=== PATIENT | female | born 1950 | race Hispanic/Latino ===

== ENCOUNTER 2017-07-03 02:18 | Emergency (ER) | payer OTHER, MEDICARE ==
[2017-07-03] MEDS ORDERED: DEXAMETHASONE SOD PHOSPHATE 10MG/ML 1ML VIAL ONE (03:08)
[2017-07-03] MEDS ORDERED: WATER FOR INJECTION,STERILE 20 ML VIAL ONE (03:08)
[2017-07-03] MEDS ORDERED: CEFTRIAXONE SODIUM 1 GM ONE (03:09)
[2017-07-03] MEDS ORDERED: ACETAMINOPHEN EXTRA STRENGTH 500 MG TABLET ONE (03:09)
[2017-07-03] MEDS ORDERED: SODIUM CHLORIDE 0.9% 1000ML 1,000 ML IV ONE (03:09)
[2017-07-03 03:13] LABS: BASOPHILS % (AUTO) 0.5 % (0.0-5.0); EOSINOPHILS % (AUTO) 1.4 % (0.0-8.0); HEMATOCRIT 40.2 % (36-48); LYMPHOCYTES % (AUTO) 33.9 % (21.0-51.0); MEAN CORPUSCULAR HEMOGLOBIN 29.5 pg (27.0-33.0); MEAN CORPUSCULAR HGB CONC 33.5 g/dL (32.0-36.0); MEAN CORPUSCULAR VOLUME 88.2 fL (79-99); MONOCYTES % (AUTO) 12.6 % (3.0-13.0); NEUTROPHILS % (AUTO) 51.6 % (40.0-77.0); PLATELET COUNT (AUTO) 194 K/uL (130-400); RED BLOOD CELL COUNT(AUTO) 4.56 MIL/uL (4.00-5.50); RED CELL DISTRIBUTION WIDTH 13.4 % (11.0-15.5); WHITE BLOOD COUNT (AUTO) 7.1 K/uL (4.8-10.8)
[2017-07-03 03:16] LABS: CREATININE 0.8 mg/dL (0.5-1.5); POTASSIUM 3.5 mmol/L (3.5-5.1)
[2017-07-03 03:20] LABS: ALBUMIN 3.8 g/dL (3.5-5.0); BILIRUBIN,TOTAL 0.3 mg/dL (0.2-1.0); TOTAL PROTEIN, SERUM 7.7 g/dL (6.0-8.3)
[2017-07-03] MEDS ORDERED: IPRATROPIUM/ALBUTEROL SULFATE 3 ML SOLUTION IH ONE (03:42)
== END 2017-07-03 05:05 | disposition home or self-care (01) ==
LOC: EDH 02:18
DX: J20.9 Acute bronchitis, unspecified (principal); I10 Essential (primary) hypertension; E78.5 Hyperlipidemia, unspecified; Z88.6 Allergy status to analgesic agent
CPT/HCPCS: 36415; 71020; 80053; 85025; 87804 ×2; 94640; 96361; 96374; 96375; 99285; J0696; J1100; J7030

== ENCOUNTER 2017-07-05 12:44 | Emergency (ER) | payer OTHER, MEDICARE ==
[2017-07-05 13:20] LABS: CARBON DIOXIDE 26 mmol/L (21-32); CHLORIDE 97 mmol/L (101-111); CREATININE 1.1 mg/dL (0.5-1.5); GLOMERULAR FILTR. RATE CALC 53 mL/min (>60); GLUCOSE,RANDOM 131 mg/dL (70-105); POTASSIUM 3.4 mmol/L (3.5-5.1); SODIUM SERUM 136 mmol/L (136-145); UREA NITROGEN, BLOOD 15 mg/dL (7-18)
[2017-07-05 13:23] LABS: BASOPHILS % (AUTO) 0.5 % (0.0-5.0); HEMATOCRIT 40.6 % (36-48); LYMPHOCYTES % (AUTO) 18.3 % (21.0-51.0); MEAN CORPUSCULAR HEMOGLOBIN 29.8 pg (27.0-33.0); MEAN CORPUSCULAR VOLUME 87.5 fL (79-99); NEUTROPHILS % (AUTO) 75.2 % (40.0-77.0); PLATELET COUNT (AUTO) 198 K/uL (130-400); RED BLOOD CELL COUNT(AUTO) 4.64 MIL/uL (4.00-5.50); RED CELL DISTRIBUTION WIDTH 13.3 % (11.0-15.5); WHITE BLOOD COUNT (AUTO) 7.1 K/uL (4.8-10.8)
[2017-07-05] MEDS ORDERED: IBUPROFEN 600 MG TABLET ONE (13:27)
[2017-07-05] MEDS ORDERED: ORPHENADRINE CITRATE 30 MG/ML ML ONE (13:27)
[2017-07-05 13:33] LABS: ALANINE AMINOTRANSFERASE 56 U/L (12-78); ALBUMIN 3.9 g/dL (3.5-5.0); ASPARTATE AMINOTRANSFERASE 31 U/L (10-37); BILIRUBIN,TOTAL 0.4 mg/dL (0.2-1.0); CREATINE KINASE MB < 0.5 ng/mL (0.5-3.6); CREATINE KINASE, TOTAL 58 U/L (21-232)
[2017-07-05] MEDS ORDERED: LIDOCAINE 5% TOPICAL PATCH TP ONE (14:39)
== END 2017-07-05 15:44 | disposition home or self-care (01) ==
LOC: EDH 12:44
DX: M62.830 Muscle spasm of back (principal); J10.1 Influenza due to other identified influenza virus with other respiratory manifestations; I10 Essential (primary) hypertension; E78.5 Hyperlipidemia, unspecified; Z88.6 Allergy status to analgesic agent
CPT/HCPCS: 36415; 71046; 80053; 82550; 82553; 84484; 85025; 87804 ×2; 93005; 96361; 96374; 99285; J2360

== ENCOUNTER → 2017-12-20 | Outpatient (CLI) | payer OTHER, MEDICARE | END | disposition home or self-care (01) | LOC: OIH 11:51 | PROVIDERS: ATTEND Internal Medicine | DX: I10 Essential (primary) hypertension (principal); J45.991 Cough variant asthma | CPT/HCPCS: 71046 ==

== ENCOUNTER → 2019-12-25 | Outpatient (CLI) | payer OTHER ==
[~2019-12-25] MED LIST: AMLO5TAB9 PO; APIX2.5T PO; AZIT500T4 PO; DEXA6TAB PO; LISI1TAB51 PO; OMEP20CA12 PO; PRAV20TA4 PO; TERB250T51 PO
== END | disposition home or self-care (01) ==
LOC: OIH 09:08
PROVIDERS: ATTEND Internal Medicine
DX: J45.909 Unspecified asthma, uncomplicated (principal); I70.0 Atherosclerosis of aorta; S09.90XA Unspecified injury of head, initial encounter; X58.XXXA Exposure to other specified factors, initial encounter; Y93.89 Activity, other specified; Y92.89 Other specified places as the place of occurrence of the external cause; Y99.8 Other external cause status
CPT/HCPCS: 70250; 71046

== ENCOUNTER 2020-01-01 08:03 | Inpatient (IN) | payer OTHER ==
[~2020-01-01] VITALS: Ht 157.5 cm; Wt 65.8 kg
[2020-01-01] MEDS ORDERED: CEFTRIAXONE SODIUM 2 GM VIAL ONE (08:58)
[2020-01-01] MEDS ORDERED: POTASSIUM CHLORIDE 10% ELIXIR 20 MEQ/15 ML UDCUP ONE (11:03)
[2020-01-01] MEDS: ASCORBIC ACID 500 MG TAB PO SCH (12:45)
[2020-01-01] MEDS: THIAMINE HCL 100 MG TABLET PO SCH (12:45)
[2020-01-01] MEDS ORDERED: POTASSIUM CHLORIDE 20 MEQ ERTAB PO SCH (12:45)
[2020-01-01] MEDS ORDERED: HYDRALAZINE HCL 20 MG/ML VIAL IV PRN (13:30)
[2020-01-01] MEDS ORDERED: THIAMINE HCL 100 MG TABLET ONE (14:05)
[2020-01-01] MEDS ORDERED: POTASSIUM CHLORIDE 20 MEQ ERTAB PO ONE (14:05)
[2020-01-01] MEDS ORDERED: CEFTRIAXONE SODIUM 1 GM ONE (14:05)
[2020-01-01] MEDS ORDERED: DOXYCYCLINE HYCLATE 100 MG TABLET PO ONE (14:34)
[2020-01-01] MEDS ORDERED: METHYLPREDNISOLONE SOD SUCC 40MG/ML 1ML ONE (14:35)
[2020-01-01] MEDS: METHYLPREDNISOLONE SOD SUCC 40MG/ML 1ML IVP SCH (15:00)
[2020-01-01] MEDS ORDERED: LACTATED RINGERS 1000ML 1,000 ML IV SCH (16:15)
[2020-01-02] MEDS ORDERED: ENOXAPARIN SODIUM 40 MG/0.4 ML SYRINGE SQ ONE (04:58)
[2020-01-02] MEDS ORDERED: METHYLPREDNISOLONE SOD SUCC 40MG/ML 1ML ONE ×2 (04:58→16:17)
[2020-01-02] MEDS ORDERED: DOXYCYCLINE HYCLATE 100 MG TABLET PO ONE ×2 (04:58→16:17)
[2020-01-02] MEDS ORDERED: CEFTRIAXONE SODIUM 1 GM ONE ×2 (04:59→16:18)
[2020-01-02] MEDS ORDERED: LACTATED RINGERS 1000ML 1,000 ML IV ONE (04:59)
[2020-01-02] MEDS ORDERED: AMLODIPINE BESYLATE 5 MG TAB ONE (07:58)
[2020-01-02] MEDS ORDERED: THIAMINE HCL 100 MG TABLET ONE (07:58)
[2020-01-02] MEDS: CEFTRIAXONE SODIUM 1 GM IVP SCH (08:00)
--- NOTE | 2020-01-02 09:21 | NUR ---
DCP: HOME Sw unable to speak to pt who is in the ER covid unit. SW spoke to pt's son Jose David Aguayo [phone] who is listed as ER contacted. Son states pt lives alone, is very active and independent, drives, and works as provider. Pt uses no DME or in home care services. PCP is Dr Ragsdale and uses [facility]. Son states that pt will dc home and someone will stay with her if needed, or they will take pt to his home if she needs more help. Addendum: 01/02/20 at 0929 by TRACEE VASQUEZ Amended: Links added.
[2020-01-03] MEDS ORDERED: METHYLPREDNISOLONE SOD SUCC 40MG/ML 1ML ONE ×2 (03:28→15:32)
[2020-01-03] MEDS ORDERED: DOXYCYCLINE HYCLATE 100 MG TABLET PO ONE ×2 (04:37→15:32)
[2020-01-03] MEDS ORDERED: THIAMINE HCL 100 MG TABLET ONE (07:39)
[2020-01-03] MEDS ORDERED: AMLODIPINE BESYLATE 5 MG TAB ONE (07:39)
[2020-01-03] MEDS ORDERED: ENOXAPARIN SODIUM 40 MG/0.4 ML SYRINGE SQ ONE (07:40)
--- NOTE | 2020-01-03 10:16 | NUR ---
DISPO EXPEDTED TO BE TO HOME WHEN RESPONDS TO TREATMENT. CM WILL AWAIT IF POSS NEED FOR O2 Addendum: 01/03/20 at 1016 by TRUDI ONEAL RN CM Amended: Links added.
[2020-01-03] MEDS ORDERED: CEFTRIAXONE SODIUM 1 GM ONE (15:32)
[2020-01-03] MEDS ORDERED: REMDESIVIR (INVESTIGATIONAL) 100 MG in SODIUM CHLORIDE 0.9% 250 ML IV SCH (17:15)
[2020-01-04] MEDS ORDERED: METHYLPREDNISOLONE SOD SUCC 40MG/ML 1ML ONE ×2 (04:00→15:49)
[2020-01-04] MEDS ORDERED: DOXYCYCLINE HYCLATE 100 MG TABLET PO ONE ×2 (04:00→15:48)
[2020-01-04] MEDS ORDERED: CEFTRIAXONE SODIUM 1 GM ONE ×2 (04:01→15:50)
[2020-01-04] MEDS: ENOXAPARIN SODIUM 40 MG/0.4 ML SYRINGE SQ SCH (09:00)
[2020-01-04] MEDS: THIAMINE HCL 100 MG TABLET PO SCH ×2 (09:00→12:45)
[2020-01-04] MEDS: ASCORBIC ACID 500 MG TAB PO SCH ×2 (09:00→12:45)
[2020-01-04] MEDS: AMLODIPINE BESYLATE 5 MG TAB PO SCH (09:00)
[2020-01-04] MEDS ORDERED: AMLODIPINE BESYLATE 5 MG TAB ONE (10:37)
[2020-01-04] MEDS ORDERED: ENOXAPARIN SODIUM 30 MG/0.3 ML SQ ONE (10:38)
[2020-01-04] MEDS ORDERED: ASCORBIC ACID 500 MG TAB ONE (15:49)
[2020-01-04] MEDS ORDERED: POTASSIUM CHLORIDE 20 MEQ ERTAB PO ONE (15:49)
[2020-01-04] MEDS ORDERED: THIAMINE HCL 100 MG TABLET ONE (15:50)
[2020-01-04] MEDS ORDERED: SODIUM CHLORIDE 0.9% 100 ML IV ONE (17:27)
[2020-01-04] MEDS: CEFTRIAXONE SODIUM 1 GM IVP SCH (20:00)
[2020-01-04] MEDS: METHYLPREDNISOLONE SOD SUCC 40MG/ML 1ML IVP SCH (21:00)
[2020-01-04] MEDS: DOXYCYCLINE HYCLATE 100 MG TABLET PO SCH (21:00)
[2020-01-04 22:30] VITALS: BP 109/74; PULSE 75; RESP 20; TEMP 97.7
[2020-01-05 04:00] VITALS: BP 120/69; PULSE 73; RESP 20; TEMP 97.9
[2020-01-05 08:00] VITALS: BP 117/70; PULSE 75; RESP 24; TEMP 98.2
[2020-01-05] MEDS: CEFTRIAXONE SODIUM 1 GM IVP SCH (08:11)
[2020-01-05] MEDS: METHYLPREDNISOLONE SOD SUCC 40MG/ML 1ML IVP SCH (09:20)
[2020-01-05] MEDS: ASCORBIC ACID 500 MG TAB PO SCH ×2 (09:20→09:22)
[2020-01-05] MEDS: DOXYCYCLINE HYCLATE 100 MG TABLET PO SCH (09:20)
[2020-01-05] MEDS: THIAMINE HCL 100 MG TABLET PO SCH ×2 (09:20→09:22)
[2020-01-05] MEDS: ENOXAPARIN SODIUM 40 MG/0.4 ML SYRINGE SQ SCH (09:21)
[2020-01-05] MEDS: AMLODIPINE BESYLATE 5 MG TAB PO SCH (09:21)
[2020-01-05 11:30] VITALS: BP 121/69; PULSE 74; RESP 20; TEMP 98.4
[2020-01-05 15:30] VITALS: BP 116/69; PULSE 82; RESP 20; TEMP 98.2
[2020-01-05 19:00] VITALS: BP 129/80; PULSE 80; RESP 20; TEMP 97.7
[2020-01-05] MEDS ORDERED: ACETAMINOPHEN 325 MG TAB PO PRN (22:15)
[2020-01-05 23:00] VITALS: BP 118/70; PULSE 72; RESP 20; TEMP 98
[2020-01-06 03:00] VITALS: BP 114/72; PULSE 77; RESP 20; TEMP 98
--- NOTE | 2020-01-06 06:54 | NUR ---
END OF SHIFT PATIENT HAD REQUESTED TYLENOL FOR PAIN. RECEIVED ORDERS FOR TYLENOL Q6 PRN [address] DR. MEDRANO. PATIENT WAS RESTING AND STATED SHE WAS OKAT THIS TIME. PATIENT RESTING COMFORTABLY IN BED WITH NO NEEDS OR CONCERNS AT THIS TIME
[2020-01-06 08:00] VITALS: BP 134/71; PULSE 72; RESP 18; TEMP 97.6
[2020-01-06] MEDS: DEXAMETHASONE SOD PHOSPHATE 4 MG/ML 1ML VIAL IM SCH (08:18)
[2020-01-06] MEDS: AMLODIPINE BESYLATE 5 MG TAB PO SCH (08:19)
[2020-01-06] MEDS: ASCORBIC ACID 500 MG TAB PO SCH ×2 (08:19→08:20)
[2020-01-06] MEDS: THIAMINE HCL 100 MG TABLET PO SCH ×2 (08:19→08:20)
[2020-01-06] MEDS: ENOXAPARIN SODIUM 40 MG/0.4 ML SYRINGE SQ SCH (08:20)
[2020-01-06 12:00] VITALS: BP 125/66; PULSE 87; RESP 20; TEMP 97.4
[2020-01-06 15:30] VITALS: BP 118/58; PULSE 61; RESP 20; TEMP 97.8
[2020-01-06 19:00] VITALS: BP 122/76; PULSE 68; RESP 20; TEMP 97.4
[2020-01-06 23:00] VITALS: BP 120/72; PULSE 69; RESP 20; TEMP 98.1
[2020-01-07] VITALS (8 sets, daily range): BP systolic 113–132; BP diastolic 67–75; PULSE 61–76; RESP 18–20; TEMP 97.6–98.4
[2020-01-07] MEDS: DEXAMETHASONE SOD PHOSPHATE 4 MG/ML 1ML VIAL IM SCH (09:34)
[2020-01-07] MEDS: THIAMINE HCL 100 MG TABLET PO SCH (09:34)
[2020-01-07] MEDS: AMLODIPINE BESYLATE 5 MG TAB PO SCH (09:34)
[2020-01-07] MEDS: ASCORBIC ACID 500 MG TAB PO SCH (09:43)
[2020-01-07] MEDS: ENOXAPARIN SODIUM 40 MG/0.4 ML SYRINGE SQ SCH (09:57)
[2020-01-08] VITALS (7 sets, daily range): BP systolic 112–121; BP diastolic 55–78; PULSE 65–79; RESP 18; TEMP 97.8–98.7
[2020-01-08] MEDS: THIAMINE HCL 100 MG TABLET PO SCH (08:19)
[2020-01-08] MEDS: ENOXAPARIN SODIUM 40 MG/0.4 ML SYRINGE SQ SCH (08:19)
[2020-01-08] MEDS: ASCORBIC ACID 500 MG TAB PO SCH (08:19)
[2020-01-08] MEDS: AMLODIPINE BESYLATE 5 MG TAB PO SCH (08:19)
[2020-01-08] MEDS: DEXAMETHASONE SOD PHOSPHATE 4 MG/ML 1ML VIAL IM SCH (08:20)
[2020-01-09] VITALS (8 sets, daily range): BP systolic 106–123; BP diastolic 69–75; PULSE 68–86; RESP 17–20; TEMP 97.3–98.2
[2020-01-09] MEDS: ASCORBIC ACID 500 MG TAB PO SCH (08:21)
[2020-01-09] MEDS: AMLODIPINE BESYLATE 5 MG TAB PO SCH (08:21)
[2020-01-09] MEDS: THIAMINE HCL 100 MG TABLET PO SCH (08:21)
[2020-01-09] MEDS: ENOXAPARIN SODIUM 40 MG/0.4 ML SYRINGE SQ SCH (08:22)
[2020-01-09] MEDS: DEXAMETHASONE SOD PHOSPHATE 4 MG/ML 1ML VIAL IVP SCH ×2 (08:45→09:00)
--- NOTE | 2020-01-09 16:28 | NUR ---
PATIENT SATURATING 93% ON ROOM AIR, NO COMPLAINTS OF SHORTNESS OF BREATH. AT THIS TIME PATIENT IS SITTING AT THE EDGE OF THE BED. ENCOURAGED TO PRONE. WILL CONTINUE TO MONITOR
[2020-01-10 03:45] VITALS: BP 122/70; PULSE 64; RESP 18; TEMP 97.8
[2020-01-10 08:00] VITALS: BP 112/68; PULSE 67; RESP 18; TEMP 97.6
[2020-01-10 08:02] VITALS: PULSE 65; RESP 17
[2020-01-10] MEDS: DEXAMETHASONE SOD PHOSPHATE 4 MG/ML 1ML VIAL IVP SCH (08:44)
[2020-01-10] MEDS: AMLODIPINE BESYLATE 5 MG TAB PO SCH (08:44)
[2020-01-10] MEDS: ENOXAPARIN SODIUM 40 MG/0.4 ML SYRINGE SQ SCH (08:44)
[2020-01-10] MEDS: THIAMINE HCL 100 MG TABLET PO SCH (08:44)
[2020-01-10] MEDS: ASCORBIC ACID 500 MG TAB PO SCH (08:45)
--- NOTE | 2020-01-10 11:28 | NUR ---
RDSCREEN - LOS X 9 Pt admitted with PNA, positive for COVID-19. Upon call, Pt reports very displeased with meal presentation as well as care. Pt reports receives food from outside from son. Pt to receive sandwich plate for lunch today. Pt reports nurses not responsive and not helpful when reached. Wants fresh air. Has been seen/contacted by MD regularly. Reports the loss of two uncles in less than a week and is very distressed. Pt reports she will write a letter upon discharge. S/p Plasma Tx. Intermittent prone positioning. Improving clinical symptoms as per EMR. Vitamin C not available as per EMR. No nutritional needs at this time as per Pt. Recommend continue Heart Healthy diet order. RD to continue to monitor. Please notify RD as additional nutrition concerns arise. Thank you.
[2020-01-10 12:00] VITALS: BP 121/74; PULSE 69; RESP 18; TEMP 97.6
--- NOTE | 2020-01-10 16:45 | NUR ---
DISCHARGE INSTRUCTIONS GIVEN TO PATIENT AND INSTRUCTED TO HALFWAY IN PLACE FOR 21 DAY SHE IS STILL COVID POSITIVE FROM HER TEST THAT WAS TAKEN YESTERDAY. INSTRUCTIONS ABOUT CAUTIONS AND RECOMMENDATION FROM THE CDC TO WHAT IS NECESSARY FOR HER TO HALFWAY IN PLACE AND WHAT SHE NEEDS TO WATCH FOR AND DO. FAMILY WILL NEED TO PROVIDE FOR HER BY DOING HER SHOPPING AND PROVIDING MEALS NEEDED. ALSO INSTRUCTED HER TO FOLLOW INSTRUCTIONS PER DR WHITE AND THAT SHE WILL RECEIVE A PHONE VISIT FROM DR MEDRANO TOMORROW MORNING. INSTRUCTED HER ON HER ACTIVITY AND TO SLOWLY INCREASE IT SHE IS ABLE TO TOLERATE SHE HAS BEEN HOSPITALIZED FOR 10 DAYS. INSTRUCTED TO MONITOR HER TEMPERATURE AND BREATHING AND TO CAUTION ANYONE NOT TO VISIT YOUR HOME UNTIL YOU HAVE BEEN CLEARED AND HOME IS CLEAN. Addendum: 01/10/20 at 1652 by BOY MAYERS RN RN Amended: Links added.
== END 2020-01-10 17:00 | disposition home or self-care (01) | DRG 871 ==
LOC: EDH 08:03 → EDHIP 12:42 → 2AH 01-04 22:01
PROVIDERS: ADMIT Internal Medicine; ATTEND Internal Medicine
PROC: 30233N1 Transfusion of Nonautologous Red Blood Cells into Peripheral Vein, Percutaneous Approach (ICD-10-PCS; principal; 2020-01-04)
DX: A41.89 Other specified sepsis (principal); U07.1 COVID-19; J12.89 Other viral pneumonia; J96.01 Acute respiratory failure with hypoxia; E87.1 Hypo-osmolality and hyponatremia; D68.59 Other primary thrombophilia; N17.9 Acute kidney failure, unspecified; E86.0 Dehydration; E78.5 Hyperlipidemia, unspecified; E86.1 Hypovolemia; E87.6 Hypokalemia; I10 Essential (primary) hypertension; K21.9 Gastro-esophageal reflux disease without esophagitis; Z79.01 Long term (current) use of anticoagulants; Z88.5 Allergy status to narcotic agent

== ENCOUNTER → 2020-03-04 | Outpatient (CLI) | payer OTHER ==
[~2020-03-04] MED LIST changes: -AZIT500T4 PO; -TERB250T51 PO
== END | disposition home or self-care (01) ==
LOC: OIH 07:38
PROVIDERS: ATTEND Internal Medicine
DX: I50.9 Heart failure, unspecified (principal)
CPT/HCPCS: 71046

== ENCOUNTER → 2020-10-09 | Outpatient (CLI) | payer OTHER ==
[~2020-10-09] MED LIST changes: +AMLO-257 PO; -AMLO5TAB9 PO
== END | disposition home or self-care (01) ==
LOC: OIH 07:49
PROVIDERS: ATTEND Internal Medicine
DX: I10 Essential (primary) hypertension (principal)
CPT/HCPCS: 71046

== ENCOUNTER 2020-12-09 10:19 | Emergency (ER) | payer OTHER, MEDICARE ==
[~2020-12-09] VITALS: Ht 154.9 cm; Wt 70.8 kg
[2020-12-09 10:21] VITALS: BP 150/81
== END 2020-12-09 12:17 | disposition home or self-care (01) ==
LOC: EDH 10:19
DX: S01.81XD Laceration without foreign body of other part of head, subsequent encounter (principal); Z88.6 Allergy status to analgesic agent; Z88.5 Allergy status to narcotic agent; Z79.899 Other long term (current) drug therapy; Z79.01 Long term (current) use of anticoagulants; X58.XXXD Exposure to other specified factors, subsequent encounter
CPT/HCPCS: 99281

== ENCOUNTER → 2021-01-24 | Outpatient (CLI) | payer OTHER, MEDICARE | END | disposition home or self-care (01) | LOC: PAH 09:05 | PROVIDERS: ATTEND Internal Medicine | DX: M47.26 Other spondylosis with radiculopathy, lumbar region (principal); M41.85 Other forms of scoliosis, thoracolumbar region; M85.88 Other specified disorders of bone density and structure, other site | CPT/HCPCS: 72082 ==

== ENCOUNTER → 2021-11-12 | Outpatient (CLI) | payer OTHER, MEDICARE | END | disposition home or self-care (01) | LOC: RAH 14:30 | PROVIDERS: ATTEND Internal Medicine | DX: M77.32 Calcaneal spur, left foot (principal); M19.072 Primary osteoarthritis, left ankle and foot | CPT/HCPCS: 73620 ==

== ENCOUNTER 2022-04-24 15:22 | Emergency (ER) | payer OTHER, MEDICARE ==
[~2022-04-24] VITALS: Ht 157.5 cm; Wt 72.6 kg
[2022-04-24] MEDS ORDERED: IBUPROFEN 800 MG TAB PO ONE (16:00)
[2022-04-24] MEDS ORDERED: ACET-2247 PO (16:23)
[2022-04-24 16:29] VITALS: BP 142/87
== END 2022-04-24 16:34 | disposition home or self-care (01) ==
LOC: EDH 15:22
DX: J06.9 Acute upper respiratory infection, unspecified (principal); Z20.822 Contact with and (suspected) exposure to COVID-19; E78.00 Pure hypercholesterolemia, unspecified; I10 Essential (primary) hypertension; Z88.5 Allergy status to narcotic agent; Z79.01 Long term (current) use of anticoagulants; Z79.899 Other long term (current) drug therapy; Z98.890 Other specified postprocedural states
CPT/HCPCS: 99283; 87635; 87804 ×2; C9803

== ENCOUNTER → 2023-08-26 | Outpatient (CLI) | payer OTHER, MEDICARE ==
[~2023-08-26] MED LIST changes: +ACET-2247 PO
== END | disposition home or self-care (01) ==
LOC: RAH 15:46
PROVIDERS: ATTEND Internal Medicine
DX: M06.4 Inflammatory polyarthropathy (principal); M54.16 Radiculopathy, lumbar region
CPT/HCPCS: 72100